=== PATIENT | male | born 1965 | race Caucasian/White ===

== ENCOUNTER 2017-04-21 10:58 | Emergency (ER) | payer SELFPAY ==
[~2017-04-21] VITALS: Ht 180.3 cm; Wt 86.3 kg
[~2017-04-21 10:58] MED LIST: DOCU-131 PO; DRON5CAP PO; ESOM40CA PO; FENT1PAT77 TD; FENT1PAT78 TD; HYDR-3307 PO; IMIP50TA3 PO; LORA-446 PO; METO10TA2 PO; METO25TA35 PO; METO5TAB57 PO; MORP-52 PO; MORP10SO PO; MORP20SO PO; ONDA4TAB10 PO; ONDA4TAB13 PO; OXYC5TAB3 PO; SUCR1ORA11 PO; [UNRECOGNIZED DRUG - OTHER]
[2017-04-21] MEDS ORDERED: SODIUM CHLORIDE FLUSH 10ML SYR IVF ONE (11:30)
[2017-04-21] MEDS ORDERED: ONDANSETRON 2MG/ML, 2ML IVPush ONE (11:30)
[2017-04-21] MEDS ORDERED: MORPHINE SULFATE 4 MG/ML, 1ML IVPush PRN (11:30)
[2017-04-21] MEDS ORDERED: ONDANSETRON 2MG/ML, 2ML ONE (11:38)
[2017-04-21] MEDS ORDERED: MORPHINE SULFATE 4 MG/ML, 1ML ONE (11:38)
[2017-04-21 11:44] LABS: BASOPHILS # (AUTO) 0.03 x10^3/uL (0-0.1); BASOPHILS % (AUTO) 1 % (0-1); EOSINOPHILS # (AUTO) 0.02 x10^3/uL (0-0.4); EOSINOPHILS % (AUTO) 0 % (1-7); LYMPHOCYTES # (AUTO) 0.71 x10^3/uL (1-3.4); LYMPHOCYTES % (AUTO) 11 % (22-44); MD NO; MEAN CORPUSCULAR HEMOGLOBIN 31.8 pg (27.5-34.5); MEAN CORPUSCULAR HGB CONC 34.5 g/dL (33.2-36.2); MEAN CORPUSCULAR VOLUME 92.2 fL (81-97); MEAN PLATELET VOLUME 8.4 fL (7.4-10.4); MONOCYTES # (AUTO) 0.43 x10^3/uL (0.2-0.8); MONOCYTES % (AUTO) 7 % (2-9); NEUTROPHILS # (AUTO) 5.31 x10^3/uL (1.8-6.8); NEUTROPHILS % (AUTO) 82 % (42-75); PLATELET COUNT 189 x10^3/uL (130-400); RED BLOOD COUNT 4.96 x10^6/uL (4.38-5.82); RED CELL DISTRIBUTION WIDTH 13.7 % (9.4-14.8)
[2017-04-21 11:56] LABS: ALANINE AMINOTRANSFERASE 43 U/L (12-78); ALBUMIN 3.3 g/dL (3.4-5.0); ANION GAP 8 mmol/L (5-15); CALCIUM 7.8 mg/dL (8.5-10.1); CHLORIDE 107 mmol/L (98-107); CREATININE 1.09 mg/dL (0.7-1.3)
[2017-04-21 12:00] LABS: ALKALINE PHOSPHATASE 72 U/L (45-117); BILIRUBIN,TOTAL 0.5 mg/dL (0.2-1.0); TOTAL PROTEIN 6.8 g/dL (6.4-8.2); TROPONIN I < 0.015 ng/mL (0.000-0.045)
[2017-04-21] MEDS ORDERED: OMNIPAQUE 350 MG/ML, 100ML BOTTLE ONE (12:50)
[2017-04-21 14:21] VITALS: BP 145/87
== END 2017-04-21 14:23 | disposition home or self-care (01) ==
LOC: ED 14:17
DX: R07.2 Precordial pain (principal); I10 Essential (primary) hypertension; Z90.49 Acquired absence of other specified parts of digestive tract; Z92.21 Personal history of antineoplastic chemotherapy; Z46.59 Encounter for fitting and adjustment of other gastrointestinal appliance and device
CPT/HCPCS: 36415; 71045; 71275; 80053; 83605; 83880; 84484; 85025; 93005; 96374; 96375; 99285; J2405; Q9967

== ENCOUNTER 2017-07-15 01:01 | Emergency (ER) | payer OTHER ==
[~2017-07-15] VITALS: Ht 180.3 cm; Wt 86.9 kg
[~2017-07-15 01:01] MED LIST changes: +LISI-424 PO; +OMEP-110 PO
[2017-07-15] MEDS ORDERED: ASPIRIN 81 MG TABLET CHEW ONE (01:53)
[2017-07-15] MEDS ORDERED: ASPIRIN 81 MG TABLET CHEW PO ONE (02:00)
[2017-07-15] MEDS ORDERED: SODIUM CHLORIDE 0.9% 1,000ML IVBOLUS ONE (02:00)
[2017-07-15] MEDS ORDERED: SODIUM CHLORIDE FLUSH 10ML SYR IVF ONE (02:00)
[2017-07-15 02:23] LABS: BASOPHILS # (AUTO) 0.02 x10^3/uL (0-0.1); BASOPHILS % (AUTO) 0 % (0-1); EOSINOPHILS # (AUTO) 0.02 x10^3/uL (0-0.4); EOSINOPHILS % (AUTO) 0 % (1-7); LYMPHOCYTES # (AUTO) 0.47 x10^3/uL (1-3.4); LYMPHOCYTES % (AUTO) 6 % (22-44); MD NO; MEAN CORPUSCULAR HEMOGLOBIN 32.2 pg (27.5-34.5); MEAN CORPUSCULAR HGB CONC 34.8 g/dL (33.2-36.2); MEAN CORPUSCULAR VOLUME 92.4 fL (81-97); MEAN PLATELET VOLUME 9.7 fL (7.4-10.4); MONOCYTES % (AUTO) 8 % (2-9); NEUTROPHILS # (AUTO) 6.43 x10^3/uL (1.8-6.8); NEUTROPHILS % (AUTO) 85 % (42-75); PLATELET COUNT 193 x10^3/uL (130-400); RED BLOOD COUNT 5.29 x10^6/uL (4.38-5.82); RED CELL DISTRIBUTION WIDTH 12.8 % (9.4-14.8)
[2017-07-15 02:27] LABS: ALBUMIN 3.9 g/dL (3.4-5.0); ANION GAP 10 mmol/L (5-15); CALCIUM 8.4 mg/dL (8.5-10.1); CHLORIDE 106 mmol/L (98-107)
[2017-07-15] MEDS ORDERED: LORazepam 2 MG/ML, 1ML IVPush ONE (02:30)
[2017-07-15 02:32] LABS: ALANINE AMINOTRANSFERASE 40 U/L (12-78); ALKALINE PHOSPHATASE 80 U/L (45-117); BILIRUBIN,TOTAL 1.1 mg/dL (0.2-1.0); CREATININE 1.46 mg/dL (0.7-1.3); TOTAL PROTEIN 7.6 g/dL (6.4-8.2); TROPONIN I < 0.015 ng/mL (0.000-0.045)
[2017-07-15] MEDS ORDERED: LORazepam 2 MG/ML, 1ML ONE (02:37)
[2017-07-15 03:12] LABS: AMPHETAMINE SCREEN, URINE Negative (Negative); BARBITURATE SCREEN, URINE Negative (Negative); BENZODIAZEPINE SCREEN, URINE Negative (Negative); CANNABINOID SCREEN, URINE Negative (Negative); COCAINE SCREEN, URINE Positive (Negative); OPIATE SCREEN, URINE Negative (Negative)
[2017-07-15 03:25] LABS: METHADONE SCREEN, URINE Negative (Negative)
[2017-07-15 04:06] VITALS: BP 114/80
== END 2017-07-15 04:36 | disposition home or self-care (01) ==
LOC: ED 03:53
DX: R07.89 Other chest pain (principal); F14.10 Cocaine abuse, uncomplicated; I10 Essential (primary) hypertension; Z90.49 Acquired absence of other specified parts of digestive tract
CPT/HCPCS: 36415; 71045; 80053; 80307; 83880; 84484; 85025; 93005; 96374; 99285; J2060; J7030